=== PATIENT | female | born 1995 | race Caucasian/White ===

== ENCOUNTER 2017-07-08 11:38 | Emergency (ER) | payer OTHER ==
[2017-07-08 12:13] VITALS: BP 110/69
--- NOTE | 2017-07-08 12:21 | UC ---
Throat Pain/Nasal Rahul HPI - HPI Summary HPI Summary: PT presents with sinus pain/pressure/congestion and frontal headache that began yesterday. She has not taken anything OTC and is asking what would be good to try. Works at [employer] and has had many sick contacts with various students. Denies fever, chills, cough, SOB, chest pain, abdominal pain. - History of Current Complaint Hx Obtained From: Patient Hx Last Menstrual Period: 06/15/17 Onset/Duration: Sudden Onset Severity: Moderate Pain Intensity: 8 Pain Scale Used: 0-10 Numeric <Albert Anton - Last Filed: 07/08/17 14:51> <Jayna Becerra - Last Filed: 07/09/17 20:18> - History of Current Complaint Chief Complaint: UCGeneralIllness Stated Complaint: CONGESTION,SORE THROAT,BILATERAL EYE Time Seen by Provider: 07/08/17 12:14 - Allergies/Home Medications Allergies/Adverse Reactions: Allergies Allergy/AdvReac Type Severity Reaction Status Date / Time No Known Allergies Allergy Verified 07/08/17 12:09 Home Medications: Home Medications Oral Contraceptive 1 tab PO DAILY 07/08/17 [History Confirmed 07/08/17] PMH/Surg Hx/FS Hx/Imm Hx Previously Healthy: Yes - Surgical History Surgical History: None - Family History Known Family History: Positive: Unknown - Social History Occupation: Employed Full-time Lives: With Family Alcohol Use: Rare Substance Use Type: None Smoking Status (MU): Never Smoked Tobacco <Albert Anton - Last Filed: 07/08/17 14:51> Review of Systems Constitutional: Negative Skin: Negative Eyes: Negative ENT: Nasal Discharge, Sinus Congestion, Sinus Pain/Tenderness Respiratory: Negative Cardiovascular: Negative Gastrointestinal: Negative Neurovascular: Negative Musculoskeletal: Negative Neurological: Negative Psychological: Negative All Other Systems Reviewed And Are Negative: Yes <Albert Anton Last Filed: 07/08/17 14:51> Physical Exam - Summary Physical Exam Summary: GENERAL: NAD. WDWN HEENT: NC/AT. Conjunctiva clear without inflammation or discharge. TMs intact , no bulging, erythema, or edema. Nasal mucosa mildly swollen and erythematous without discharge. TTP maxillary and frontal sinus. Posterior oropharynx without exudates, erythema, or tonsillar enlargement. Uvula midline. NECK: Supple without lymphadenopathy CHEST: CTAB. No r/r/w. No accessory muscle use. Breathing comfortably and in no distress. CV: RRR. Without m/r/g. Pulses intact. SKIN: No rash or erythema noted. NEURO: Alert. CN II-XII grossly intact. PSYCH: Age appropriate behavior. Triage Information Reviewed: Yes Vital Signs: Initial Vital Signs Temp 99.1 F 07/08/17 12:07 Pulse 82 07/08/17 12:07 Resp 18 07/08/17 12:07 BP 110/69 07/08/17 12:07 Pulse Ox 100 07/08/17 12:07 <Albert Anton - Last Filed: 07/08/17 14:51> Vital Signs: Initial Vital Signs Temp 99.1 F 07/08/17 12:07 Pulse 82 07/08/17 12:07 Resp 18 07/08/17 12:07 BP 110/69 07/08/17 12:07 Pulse Ox 100 07/08/17 12:07 <Jayna Becerra - Last Filed: 07/09/17 20:18> Throat Pain/Nasal Course/Dx - Course Course Of Treatment: Sinusitis. Advised mucinex and flonase OTC. Symptoms just began yesterday and could likely be viral. - Differential Dx/Diagnosis Provider Diagnoses: Sinusitis <Albert Anton Last Filed: 07/08/17 14:51> Discharge - Sign-Out/Discharge Documenting (check all that apply): Discharge - Billing Disposition and Condition Condition: STABLE Disposition: HOME <Albert Anton Last Filed: 07/08/17 14:51> - Sign-Out/Discharge Documenting (check all that apply): Discharge - Billing Disposition and Condition Condition: STABLE Disposition: HOME <Jayna Becerra - Last Filed: 07/09/17 20:18> - Discharge Plan Condition: Stable Disposition: HOME Prescriptions: Benzonatate CAP* [Tessalon 100 MG CAP*] 100 mg PO TID PRN #15 cap PRN Reason: Cough Fluticasone NASAL SPRAY 50MCG* [Flonase NASAL SPRAY 50MCG*] 1 spray BOTH NARES DAILY #1 btl guaiFENesin ER TAB [Mucinex*] 600 mg PO BID #14 tab.er Patient Education Materials: Sinusitis (ED) Forms: *School Release Referrals: Non Staff,Doctor [Primary Care Provider] - Additional Instructions: If you develop a fever, shortness of breath, chest pain, new or worsening symptoms - please call your PCP or go to the ED. 1) May also try and over the counter Netti Pot for sinus relief. Attestation Statement User Type: Provider <Jayna Becerra - Last Filed: 07/09/17 20:18>
== END 2017-07-08 12:34 | disposition home or self-care (01) ==
LOC: UCCORT 11:38
DX: J32.9 Chronic sinusitis, unspecified (principal)
CPT/HCPCS: 99202; G0463